=== PATIENT | female | born 1975 | race Caucasian/White ===

== ENCOUNTER 2025-01-29 19:23 | Emergency (ER) | payer SELFPAY ==
[2025-01-29 19:23] VITALS: BP 161/115; BP 168/126; PULSE 147; RESP 14; TEMP 36.6; O2SAT 98; BMI 39.4
[2025-01-29] MEDS: 0.9% Normal Saline (1000mL) 1,000 ML 999 ML IV (20:50)
--- NOTE | 2025-01-29 20:54 | CT_ITS ---
PROCEDURE: ABDOMEN/PELVIS W IV CONT ONLY 01/29/2025 REASON FOR EXAM: DIARRHEA, BRIGHT RED BLOOD PER RECTUM TECHNIQUE: ABDOMEN/PELVIS W IV CONT ONLY Coronal and Sagittal reconstruction series were provided. CONTRAST: Isovue 300 VOLUME: 23 mL One or more dose reduction techniques were used (e.g., Automated exposure control, adjustment of the mA and/or kV according to patient size, use of iterative reconstruction technique. RADIATION DOSE SUMMARY: CTDlvol: 45 mGy DLP: 1310 mGycm COMPARISON: No FINDINGS: Dependent atelectasis. Normal heart size. There is possible cholesterol gallstones. Normal liver. Fatty replaced pancreas. Normal spleen. 1 cm low-density left adrenal nodule favoring benign etiology. Normal kidneys. No hydronephrosis. Normal bladder. Normal uterus and ovaries. No retroperitoneal or pelvic adenopathy. No free air. Nondistended bowel. Normal appendix. No acute large bowel findings. Lumbar spine degeneration. No acute abdominal wall findings. CT/Abdomen/Pelvis W IV Cont ONLY IMPRESSION: No acute findings Reading Location: [place] [address]
[2025-01-29 20:56] LABS: Absolute Lymphocyte Count 1.15 X10^3/uL (0.83-4.51); Absolute Neutrophil Count 6.6 X10^3/uL (2.0-7.7); Basophil# 0.05 X10^3/uL; Basophil% 0.6 % (0-1); Eosinophil# 0.06 X10^3/uL; Eosinophils% 0.7 % (0-5); Hematocrit 41.9 % (37-47); Lymphocyte # 1.15 X10^3/ul (0.83-4.51); Lymphocyte % 13.5 % (19-41); Mean Corp Hgb Conc 33.4 g/dL (32-36); Mean Corpuscular Hgb 27.7 pg (27.0-32.0); Mean Platelet Vol. 9.8 fl (6.2-12.0); NRBC Flagged by Analyzer 0 % (0-5); Neutrophil # 6.63 X10^3/uL (2.7-7.7); Neutrophil % 77.8 % (47-70); Platelet Count 242 K/mm3 (150-450); RBC Distribution Width CV 13.3 % (11.6-14.6); RBC Distribution Width SD 39.6 fl (35.1-43.9); Red Blood Count 5.05 M/mm3 (4.2-5.4); White Blood Count 8.5 K/mm3 (4.4-11.0)
--- NOTE | 2025-01-29 20:57 | ED.VIS.GI ---
HPI <Dr. Shanice Sandoval DO - Last Filed: 01/30/25 00:05> HPI - GI History of Present Illness Chief Complaint: GI Bleed Informant: patient Narrative Narrative: Patient is a 49-year-old female who denies any significant past medical history presenting with bright red blood per rectum. She states she is supposed to get her. Does not have any vaginal bleeding. States she had a bowel movement yesterday which was a normal bowel movement but then she noticed some small clots of blood with wiping that was bright red. She did not see any blood in the toilet. She had another bowel movement this morning which she states was normal. Later in the day today she had diarrhea with liquid bright red blood that she knows when she was wiping. She denies associated rectal pain. Denies any abdominal pain. Denies lightheadedness or dizziness. Denies any history of ever having a colonoscopy. States she is very nervous because her sister came in for something bleeding was diagnosed with renal cancer and ultimately from it. No other complaints or concerns reported at this time. She is not on any blood thinners. PFSH <Dr. Shanice Sandoval, DO - Last Filed: 01/30/25 00:05> [facility] Medical History no medical history Home Medications ?Medication ?Instructions ?Recorded ?Last Taken ?Type NK 01/29/25 Unknown History Allergy/AdvReac Type Severity Reaction Status Date / Time No Known Allergies Allergy Verified 01/29/25 19:23 Social History Smoking Status: Never smoker ROS <Dr. Shanice Sandoval, DO - Last Filed: 01/30/25 00:05> ROS ED Constitutional Constitutional ED: Denies chills or fever(s) Gastrointestinal Gastrointestinal: Reports diarrhea; Denies abdominal pain, nausea or vomiting Genitourinary Genitourinary ED: Denies dysuria or hematuria Musculoskeletal Musculoskeletal: Denies arthralgias or myalgias Integumentary Denies rash Neurologic Neurologic: Denies weakness Psychiatric Psychiatric: Reports anxiety Hematologic/Lymphatic Hematologic/Lymphatic: Denies easy bleeding or easy bruising EXAM <Dr. Shanice Sandoval DO - Last Filed: 01/30/25 00:05> Physical Exam Const Vital Signs: 01/29/25 19:23 01/29/25 19:23 01/29/25 21:23 Temperature 98 F Temperature Source Temporal Pulse Rate 147 H 110 H Respiratory Rate 14 18 Blood Pressure 168/126 H 161/115 H 143/87 H Blood Pressure Mean 140 130 105 Pulse Ox 98 97 Oxygen Delivery Method Room Air Room Air 01/29/25 23:00 01/30/25 00:32 Temperature 99 F Temperature Source Pulse Rate 109 H 107 H Respiratory Rate 18 16 Blood Pressure 127/72 H 124/81 H Blood Pressure Mean 90 95 Pulse Ox 97 98 Oxygen Delivery Method Room Air Positive well nourished and well developed General Appearance ED: well developed and NAD; Negative for pallor HEENT Reports moist mucous membranes Eyes General Eye ED: Negative for pale conjunctiva Neck supple Resp normal respiratory effort Cardio regular rhythm and no murmurs Rate: tachycardic GI non-tender and non-distended GI Narrative: Chaperoned rectal exam performed. No obvious bleeding on external exam. No enlarged or thrombosed hemorrhoids present. No obvious fissures. Mild tenderness on rectal exam but no obvious blood present. No stool noted in the rectal vault. No palpated hemorrhoids. Auscultation: normoactive bowel sounds Palpation: soft; Negative for tender or guarding Neuro Sensorium / Orientation: alert, oriented to person, oriented to place and oriented to time Motor Exam: Negative for general weakness Psych mental status grossly normal and thought process normal Mood & Affect: anxious Skin General Skin Exam: Negative for pallor Rashes: no rashes <Dr. Danny Enrique, DO - Last Filed: 01/30/25 02:17> Physical Exam Const Vital Signs: 01/29/25 19:23 01/29/25 19:23 01/29/25 21:23 Temperature 98 F Temperature Source Temporal Pulse Rate 147 H 110 H Respiratory Rate 14 18 Blood Pressure 168/126 H 161/115 H 143/87 H Blood Pressure Mean 140 130 105 Pulse Ox 98 97 Oxygen Delivery Method Room Air Room Air 01/29/25 23:00 01/30/25 00:32 Temperature 99 F Temperature Source Pulse Rate 109 H 107 H Respiratory Rate 18 16 Blood Pressure 127/72 H 124/81 H Blood Pressure Mean 90 95 Pulse Ox 97 98 Oxygen Delivery Method Room Air MDM <Dr. Shanice Sandoval, DO - Last Filed: 01/30/25 00:05> [facility] Narrative Medical decision making narrative: Patient is evaluated for bright red blood per rectum. No other complaints. Upon arrival patient is quite tachycardic and hypertensive. She admits she is incredibly anxious about being in the ER because her sister of renal cancer and presented with bleeding. Suspect it was urinary and not rectal. Will obtain lab work including CBC, coags, CMP, perform rectal exam and get lactate. Her workup is normal with no acute abnormalities. CT abdomen pelvis is pending. Patient signed out to oncoming physician pending CT result. Anticipate this is negative she is a good candidate for outpatient follow-up. Patient's Chazy score for lower GI bleeding is 95% probability of safe discharge home. Lab Data Attestation: I reviewed the patient's lab results. Labs: Laboratory Results - last 24 hr 01/29/25 20:45 WBC 8.5 RBC 5.05 Hgb 14.0 Hct 41.9 MCV 83.0 MCH 27.7 MCHC 33.4 RDW Std Deviation 39.6 RDW Coeff of Sesar 13.3 Plt Count 242 MPV 9.8 Immature Gran % (Auto) 0.400 Neut % (Auto) 77.8 H Lymph % (Auto) 13.5 L [place] % (Auto) 7.0 Eos % (Auto) 0.7 Baso % (Auto) 0.6 Absolute Neuts (auto) 6.6 Absolute Lymphs (auto) 1.15 Nucleated RBC % 0 PT 12.8 INR 0.9 APTT 23.8 L Sodium 139 Potassium 3.7 Chloride 103 Carbon Dioxide 22.4 Anion Gap 14 BUN 13 Creatinine 0.77 Estim Creat Clear Calc 93.83 Est GFR (MDRD) Non-Af 95 BUN/Creatinine Ratio 16.9 Glucose 102 H Lactic Acid 1.2 Calcium 9.6 Total Bilirubin 0.17 AST 15 ALT 11 Alkaline Phosphatase 35 Total Protein 7.6 Albumin 4.7 Globulin 2.9 Albumin/Globulin Ratio 1.6 Radiography Diagnostic Testing: Clinical Impression(s) from Imaging Studies Abdomen/Pelvis CT 01/29/25 20:54 IMPRESSION: No acute findings Reading [facility] <Dr. Danny Khan-Xiang, DO - Last Filed: 01/30/25 02:17> MDM MDM Narrative Medical decision making narrative: Patient is evaluated for bright red blood per rectum. No other complaints. Upon arrival patient is quite tachycardic and hypertensive. She admits she is incredibly anxious about being in the ER because her sister of renal cancer and presented with bleeding. Suspect it was urinary and not rectal. Will obtain lab work including CBC, coags, CMP, perform rectal exam and get lactate. Her workup is normal with no acute abnormalities. CT abdomen pelvis is pending. Patient signed out to oncoming physician pending CT result. Anticipate this is negative she is a good candidate for outpatient follow-up. Patient's Chazy score for lower GI bleeding is 95% probability of safe discharge home. Dr. Enrique: Patient was signed out to me by Dr. Sandoval. At the time of signout, patient's CT abdomen and pelvis was pending. CT abdomen pelvis shows no acute findings. Given that Dr. Sandoval was still here in the emergency department. She asked me to place discharge order and she updated the patient of the results and patient was discharged home. I did not personally see or evaluate the patient. Lab Data Labs: Laboratory Results - last 24 hr 01/29/25 20:45 WBC 8.5 RBC 5.05 Hgb 14.0 Hct 41.9 MCV 83.0 MCH 27.7 MCHC 33.4 RDW Std Deviation 39.6 RDW Coeff of Sesar 13.3 Plt Count 242 MPV 9.8 Immature Gran % (Auto) 0.400 Neut % (Auto) 77.8 H Lymph % (Auto) 13.5 L [place] % (Auto) 7.0 Eos % (Auto) 0.7 Baso % (Auto) 0.6 Absolute Neuts (auto) 6.6 Absolute Lymphs (auto) 1.15 Nucleated RBC % 0 PT 12.8 INR 0.9 APTT 23.8 L Sodium 139 Potassium 3.7 Chloride 103 Carbon Dioxide 22.4 Anion Gap 14 BUN 13 Creatinine 0.77 Estim Creat Clear Calc 93.83 Est GFR (MDRD) Non-Af 95 BUN/Creatinine Ratio 16.9 Glucose 102 H Lactic Acid 1.2 Calcium 9.6 Total Bilirubin 0.17 AST 15 ALT 11 Alkaline Phosphatase 35 Total Protein 7.6 Albumin 4.7 Globulin 2.9 Albumin/Globulin Ratio 1.6 Radiography Diagnostic Testing: Clinical Impression(s) from Imaging Studies Abdomen/Pelvis CT 01/29/25 20:54 IMPRESSION: No acute findings Reading Location: [place] [address] Discharge Plan Triage Chief Complaint: GI Bleed ED Provider: Shanice Sandoval Dx/Rx/DC Orders Clinical Impression: BRBPR (bright red blood per rectum) Instructions: ED Lower GI Bleeding (Stable) Prescriptions: No Action NK Primary Care Provider: Care Physician,No Primary Referrals: FriendJhon, DO [Med Staff - Active Staff] - Care Physician,No Primary [Primary Care Provider] - Activity Restrictions/Additional Instructions: Your lab work was stable. You are at low risk of having any major complications associated with this and are good candidate for outpatient follow-up. Please call the GI doctor tomorrow to arrange for close outpatient follow-up for this. Print Language: Indian Disposition Disposition: Home, Self Care Discharge Date/Time: 01/30/25 00:41
[2025-01-29 21:10] LABS: International Normalized Ratio 0.9; Prothrombin Time (Protime)PT. 12.8 SECONDS (11.7-14.9)
[2025-01-29 21:11] LABS: Partial Thromboplast Time 23.8 Seconds (24.1-36.2)
[2025-01-29 21:15] LABS: ALB/GLOB Ratio 1.6 RATIO (0.9-2.4); AST(SGOT) 15 U/L (<=31); Alanine Aminotransfer ALT/SGPT 11 U/L (<=34); Albumin, Serum 4.7 g/dL (3.5-5.0); Alkaline Phosphatase 35 U/L (35-104); Anion Gap 14 (5-15); BUN 13 mg/dL (4-19); BUN/Creat Ratio 16.9 RATIO (10-20); Calcium,Total 9.6 mg/dL (7.6-11.0); Carbon Dioxide 22.4 mmol/L (21.0-32.0); Chloride 103 mmol/L (98-108); Creatinine, Serum 0.77 mg/dL (0.70-1.20); EST Glomerular Filtration Rate 95 (>60); Estimated Creatinine Clearance 93.83 ml/min (50-250); Globulin 2.9 g/dL (2.2-4.2); Glucose 102 mg/dL (70-99); Lactic Acid 1.2 mmol/L (0.0-2.0); Potassium 3.7 mmol/L (3.3-5.1); Protein, Total 7.6 g/dL (5.9-8.4); Sodium Level 139 mmol/L (133-145); Total Bilirubin 0.17 mg/dL (0.00-1.30)
[2025-01-29 21:23] VITALS: BP 143/87; PULSE 110; RESP 18; O2SAT 97
[2025-01-29 23:00] VITALS: BP 127/72; PULSE 109; RESP 18; O2SAT 97
[2025-01-30 00:32] VITALS: BP 124/81; PULSE 107; RESP 16; TEMP 37.2; O2SAT 98
== END 2025-01-30 00:41 | disposition home or self-care (01) ==
PROVIDERS: Emergency Provider Emergency Medicine; Visit Provider Emergency Medicine
DX: K92.2 Gastrointestinal hemorrhage, unspecified (principal)
CPT/HCPCS: 74177; 80053; 82274; 83605; 85025; 85610; 85730; 96360; 96361; 99283; Q9967; A4216